=== PATIENT | female | born 1980 | race Caucasian/White ===

== ENCOUNTER → 2021-03-02 | Outpatient (CLI) | payer BC ==
[2021-03-02 21:45] LABS: ESTRADIOL 61 pg/mL (()); FOLLICLE STIMULATING HORMONE 5.8 mIU/mL (()); HCG SERUM, QUANTITATIVE (BETA) <5 mIU/mL (())
== END ==
LOC: COL.LAB 13:26
PROVIDERS: Obstetrics & Gynecology Reproductive Endocrinology
DX: Z32.00 Encounter for pregnancy test, result unknown (principal); Z31.41 Encounter for fertility testing

== ENCOUNTER 2022-01-23 03:36 | Inpatient (IN) | payer BC ==
[~2022-01-23] VITALS: Ht 170.2 cm; Wt 88.6 kg
[2022-01-23] VITALS (16 sets, daily range): BP systolic 91–126; BP diastolic 52–78; PULSE 55–99; TEMP 97.4–97.7
--- NOTE | 2022-01-23 03:40 | NUR ---
0340- PATIENT AND SPOUSE AMBULATORY TO THE UNIT. PATIENT OF DR. REYNOLDS WHO IS A AT 38.6. PATIENT REPORTS SROM AT 0230. REPORTS GFM, NO BLEEDING AND SOME CONTRACTIONS SINCE WATER BREAKING. PATIENT ORIENTATED TO ROOM AND CHANGED INTO CLEAN GOWN. 0348- EFM AND TOCO ON AND TRACING. VITALS TAKEN, ASSESSMENT COMPLETED. PLAN OF CARE DISCUSSED. PATIENT VERBALIZED UNDERSTANDING WITH NO FURTHER QUESTIONS. CALL LIGHT WITHIN REACH.
[2022-01-23] MEDS ORDERED: PRENATAL TABLET PO (04:21)
[2022-01-23] MEDS ORDERED: FIBER GUMMIES2.5 GM PO (04:22)
[2022-01-23] MEDS ORDERED: FOLIKA-NC TABL1 EACH PO (04:23)
[2022-01-23] MEDS ORDERED: VITAMIN D3400 I1 PO (04:23)
[2022-01-23 05:19] LABS: BASO % 0.4 % (0.0-2.0); EOS # 0.1 K/mm3 (0.0-0.7); EOS % 1.2 % (0.0-4.0); GRAN # 7.4 K/mm3 (1.4-6.5); GRAN % 73.7 % (42.2-75.2); HEMATOCRIT 37.1 % (37.0-47.0); HEMOGLOBIN 12.6 g/dl (12.5-16.0); LYMPH # 1.8 K/mm3 (1.2-3.4); LYMPH % 17.4 % (20.0-51.0); MEAN CELL VOLUME 90 fl (80.0-100.0); MEAN CORPUSCULAR HEMOGLOBIN 31 pg (27-31); MEAN CORPUSCULAR HGB CONC 34 g/dl (33.0-37.0); MEAN PLATELET VOLUME 11.1 fl (7.4-10.4); MONO # 0.7 K/mm3 (0.1-0.6); MONO % 6.6 % (1.7-9.3); PLATELET COUNT 198 K/mm3 (130-400); RED BLOOD COUNT 4.11 M/mm3 (4.10-5.30); REDCELL DISTRIBUTION WIDTH-CV 13.6 % (11.5-14.5)
--- NOTE | 2022-01-23 05:25 | NUR ---
0525- IV ANTIBIOTICS DONE GOING THROUGH IV. INT'D IV SITE. MONITORS OFF SO PATIENT CAN AMBULATE FOR INTERMITTENT MONITORING. DISCUSSED PLAN OF CARE AND BEING OFF FOR 40 MINUTES AND THEN NEEDING TO GET BACK ON THE MONITORS. PATIENT VERBALIZED UNDERSTANDING WITH NO FURTHER QUESTIONS. CALL LIGHT WITHIN REACH.
--- NOTE | 2022-01-23 06:15 | NUR ---
0615- THIS RN AND DENTON BEASLEY TO BEDSIDE FOR REPORT. EFM AND TOCO MONITORS BACK ON AT THIS TIME WELL. REPORT GIVEN AND PATIENT PASSED OFF AT THIS TIME.
--- NOTE | 2022-01-23 08:20 | NUR ---
0615 This RN takes over care of patient 0620 SVE 5-6/90/-1 FHR having variable and late decelerations 0627 Jose E Yen [employer] called for epidural placement 0645 SVE 7-8/90/[address] Rodriguez called and updated about FHR strip and SVE. 0712 Epidural placed and dosed by Jackeline. 0730 This RN and Chas Mandujano at bedside SVE A. [place] 10100/+1. 0744 Michael called about FHR decelerations and SVE 10/100/+1 0748 Ephedrine given to patient by this RN for blood pressure 97/59. 0755 Dr. Rodriguez in patients room evaluating FHR strip and SVE. Dr Rodriguez instructs patient on pushing with contractions. Jamie Montilla RN, Lucas Ervin RN, Lucas Jackson RN and Dr Rodriguez set up for delivery. 0800 Pt begins pushing with contractions. Vacuum discussed and pt verbalizes understanding and agreement. 0805 Straight cath 100c. Vacuum applied. 1 popoff. 0808 Vacuum extraction delivery of viable male infant. Nuchal Cord x1. Infant stimulated and bulb suctioned. to mother's abdomen. Cord clamped and cut by Dr Rodriguez. Jamie Montilla takes over care of . 0817 Spontaneous delivery of placenta. Pitocin bolus started per protocol. 2nd degree laceration noted. Repaired by Dr. Rodriguez. Fundal massage done. Firm/midline. Small amt of bleeding noted. Amaya care done. Clean pad placed. Plan of care and safety precautions discussed. Pt verbalizes understanding.
--- NOTE | 2022-01-23 10:45 | NUR ---
pt ambulatory to bathroom. tolerating well. standby assist. voids 100cc. pericare done. clean underwear and pad placed. dressed in clean gown. instructions for pericare and care of stitches given. pt verbalizes understanding. pt ambulatory to wheelchair. this rn wheels patient to nursery for bath demonstration. this RN transports pt to room 218 in wheelchair and infant transported to room 218 in crib. Pt oriented to room. Safety precautions and plan of care discussed. Pt verbalizes understanding. Call light within reach.
[2022-01-24 00:30] VITALS: BP 125/75; PULSE 62
[2022-01-24 05:00] VITALS: BP 114/63; PULSE 56; TEMP 97.6
[2022-01-24 07:42] VITALS: BP 126/67; PULSE 58; TEMP 98.2
[2022-01-24 17:00] VITALS: BP 111/63; PULSE 91; TEMP 98.1
[2022-01-24 20:25] VITALS: BP 111/65; PULSE 72; TEMP 98.5
[2022-01-25 07:25] VITALS: BP 116/61; PULSE 58; TEMP 98
[2022-01-25 17:00] VITALS: BP 118/67; PULSE 62; TEMP 97.4
== END 2022-01-25 17:30 | disposition home or self-care (01) | DRG 807 ==
LOC: LDRO 03:36 → LDR 04:12 → OB 04:12
PROVIDERS: ADMIT Student in an Organized Health Care Education/Training Program
PROC: 10D07Z6 Extraction of Products of Conception, Vacuum, Via Natural or Artificial Opening (ICD-10-PCS; principal; 2022-01-23)
PROC: 0KQM0ZZ Repair Perineum Muscle, Open Approach (ICD-10-PCS; 2022-01-23)
DX: O99.824 Streptococcus B carrier state complicating childbirth (principal); Z37.0 Single live birth; O76 Abnormality in fetal heart rate and rhythm complicating labor and delivery; O26.53 Maternal hypotension syndrome, third trimester; O35.8XX0 Maternal care for other (suspected) fetal abnormality and damage, not applicable or unspecified; O70.1 Second degree perineal laceration during delivery; O69.1XX0 Labor and delivery complicated by cord around neck, with compression, not applicable or unspecified; O09.03 Supervision of pregnancy with history of infertility, third trimester; Z3A.38 38 weeks gestation of pregnancy
CPT/HCPCS: J2540; J2590; J2795; J7120